=== PATIENT | female | born 1960 | race Caucasian/White ===

== ENCOUNTER 2016-10-11 17:18 | Emergency (ER) | payer OTHER ==
[2016-10-11] MEDS ORDERED: HYDROcodone/APAP PREPAC 5/325 1 TAB TABLET PO ONE (18:32)
--- NOTE | 2016-10-11 18:52 | ER NURSING DOCUMENTATION ---
Nurse's Notes [facility] Name:Pili Evans Age:56 yrs Sex:Female :1960 Arrival Date:10/11/2016 Time:17:18 Bed6 Private MD: Diagnosis:Internal Derangement of Knee Presentation: 10/11 17:25 Presenting complaint: Patient states: Pain behind left knee- pt was trying to run a few tg steps to catch up to her , and felt a pop behind her knee. Now too painful to bear weight. Transition of care: patient was not received from another setting of care. 17:25 Acuity: EMMA 4 tg 17:25 Method Of Arrival: Private Vehicle tg Triage Assessment: 17:34 General: Appears in no apparent distress, Behavior is cooperative, pleasant. Pain: tg Complains of pain in posterior aspect of left knee. Neuro: Level of Consciousness is awake, alert. Respiratory: Respiratory effort is even, unlabored. Derm: Skin is pink, warm & dry. Musculoskeletal: Circulation, motion, and sensation intact Range of motion limited in left knee. Historical: - Allergies: Augmentin; - Home Meds: 1. None - PMHx: None; - PSHx: ; - Tetanus: < 10 years. - Ebola Screening: : Patient negative for fever greater than or equal to 101.5 degrees Fahrenheit, and additional compatible Ebola Virus Disease symptoms. Patient denies exposure to infectious person. Patient denies travel to an Ebola-affected area in the 21 days before illness onset. . - Immunization history: Flu Vaccine < 1 year. - Social history: Smoking status: Patient states was never smoker of tobacco. Screenin:37 Infectious Disease Risk Unable to Obtain. Abuse screen: Denies threats or abuse. Denies tg injuries from another. Nutritional screening: No deficits noted. Vital Signs: 17:29 BP 111 / 62; Resp 16; Pulse Ox 96% ; Weight 58.97 kg (R); Height 5 ft. 6 in. (167.64 tg cm) (R); Pain 3/10; 17:29 Body Mass Index 20.98 (58.97 kg, 167.64 cm) tg ED Course: 17:25 Patient arrived in ED. em3 17:25 Don Vazquez, RN is Primary Nurse. tg 17:27 Triage completed. tg 17:37 Arm band placed on Bed in low position. Affected limb iced. Affected limb elevated. tg 17:37 Valuables Remains with patient. tg 17:56 KNEE; [address] [place] [address] In Process Unspecified. EDMS 18:00 Michael Garcia MD is Attending Physician. 18:01 Port Xray Completed. pm1 18:01 Rodriguez Perez DO is Referral Physician. jm 18:01 KNEE; [address] [place] [address] Sent. pm1 18:11 KNEE; [address] [place] [address] In Process Unspecified. EDMS 18:51 Crutch training done. Cristian wrap to left knee. tg Administered Medications: 18:52 Drug: HYDROcodone-acetaminophen (5mg/325 mg) 1-2 tabs 1 pkgs; Route: PO; tg 18:52 Follow up: Response: Pharmacy closed - take home med pack tg Outcome: 18:01 Discharge ordered by . 18:50 Discharged to home ambulatory, with crutches, with family. tg 18:50 Condition: stable 18:50 Discharge Assessment: Patient awake and alert. 18:50 Instructed on discharge instructions, follow up and referral plans. medication usage, Prescriptions given X 1. 18:51 Patient left the ED. tg 0508 12:45 Discharge F/U Call: Spoke with: patient. Overall Care on a scale of 1-10 with 10 tg being the best care, you rate our care as: Other comments: Doing well, pleased with care. Signatures: Dispatcher [employer] Don Voss RN RN tg Meyer, John, MD MD jm McBride, Philisha pm1 Adan Cochran em3
--- NOTE | 2016-10-11 18:52 | ER PHYSICIAN DOCUMENTATION ---
Physician Documentation [facility] Name:Pili Evans Age:56 yrs Sex:Female :1960 Arrival Date:10/11/2016 Time:17:18 Bed6 Private MD: Michael Martinez Disposition: 10/11/16 18:01 Discharged to Home/Self Care. Impression: Internal Derangement of Knee. - Condition is Good. - Discharge Instructions: KNEE PAIN, Uncertain Cause. - Prescriptions for Hydrocodone- Acetaminophen 5-325 mg Oral Tablet - take 1 tablet by ORAL route every 6 hours As needed; 20 tablet. - Medical Reconciliation form form. - Follow up: Rodriguez Perez DO; When: 4- 6 days; Reason: Continuance of care. - Problem is new. - Symptoms have improved. HPI: 10/11 18:26 This 56 yrs old Female presents to ER via Private Vehicle with complaints of jm Knee Injury - Left. 18:26 The patient presents with an injury. The complaints affect the posterior aspect of left jm knee. Context: resulted from running- pt pulled up lame after she heard a pop. , the patient is not able to bear weight. Onset: The symptom(s)/episode began/occurred just prior to arrival. The patient has not experienced similar symptoms in the past. Historical: - Allergies: Augmentin; - Home Meds: 1. None - PMHx: None; - PSHx: ; - Tetanus: < 10 years. - Ebola Screening: : Patient negative for fever greater than or equal to 101.5 degrees Fahrenheit, and additional compatible Ebola Virus Disease symptoms. Patient denies exposure to infectious person. Patient denies travel to an Ebola-affected area in the 21 days before illness onset. . - Immunization history: Flu Vaccine < 1 year. - Social history: Smoking status: Patient states was never smoker of tobacco. ROS: 18:27 Constitutional: Negative for fatigue, fever. 18:27 MS/extremity: Positive for pain, tenderness, Negative for tenderness. 18:27 Skin: Negative for swelling. 18:27 Neuro: Negative for tingling, weakness. Exam: 18:27 Constitutional: The patient appears alert, awake, comfortable. 18:27 Musculoskeletal/extremity: Extremities: grossly normal except: noted in the posterior aspect of left knee: decreased ROM, pain, Pulses: are normal with no appreciated deficits, Perfusion: the patient is noted to have brisk capillary refill, Calf tenderness, is absent, Sensation intact. Weight bearing: can bear weight with assistance only, uses crutches. 18:27 Skin: Appearance: Color: pink, swelling, is not appreciated, injury, is not appreciated. Vital Signs: 17:29 BP 111 / 62; Resp 16; Pulse Ox 96% ; Weight 58.97 kg (R); Height 5 ft. 6 in. (167.64 tg cm) (R); Pain 3/10; 17:29 Body Mass Index 20.98 (58.97 kg, 167.64 cm) tg MDM: 17:28 Patient medically screened. 18:28 Differential diagnosis: ACL tear (other soft tissue injury). Data reviewed: vital jm signs, nurses notes, and as a result, I will discharge patient. Counseling: I had a detailed discussion with the patient and/or guardian regarding: the historical points, exam findings, and any diagnostic results supporting the discharge/admit diagnosis, radiology results, the need for outpatient follow up, a orthopedic surgeon. Medication response: The patient's symptoms have improved. ED course: No xray noted. . 10/11 17:56 Order name: KNEE; [address] [place] [id number] EDMS 10/13 10:42 Order name: KNEE; [address] [place] [id number] EDMS 10/11 17:42 Order name: Ice Packs; Complete Time: 17:42 tg 10/11 18:00 Order name: ORTHO: Crutches & Training; Complete Time: 18:10 10/11 18:09 Order name: ORTHO: 6" Cristian Wrap; Complete Time: 18:10 tg Dispensed Medications: 18:52 Drug: HYDROcodone-acetaminophen (5mg/325 mg) 1-2 tabs 1 pkgs; Route: PO; tg 18:52 Follow up: Response: Pharmacy closed - take home med pack tg Signatures: Don Vazquez RN RN tg Michael Garcia MD MD jm
--- NOTE | 2016-10-13 07:33 | RADIOLOGY REPORT ---
Three views of the left knee demonstrate no displaced fracture, subluxation or bony destructive change. Anterior patellar spurring is noted. The visualized joints appear unremarkable. IMPRESSION: Patellar spurring. No acute displaced injury is identified. If clinically indicated, further evaluation and/or follow-up may be of benefit. ANTHONY
== END 2016-10-11 18:52 | disposition home or self-care (01) ==
LOC: ER 17:18
DX: M23.92 Unspecified internal derangement of left knee (principal)
CPT/HCPCS: 99283